=== PATIENT | female | born 1990 | race Caucasian/White ===

== ENCOUNTER 2020-07-21 14:18 | Emergency (ER) | payer MEDICAID ==
[~2020-07-21] VITALS: Ht 167.6 cm; Wt 83.8 kg
[2020-07-21 15:01] VITALS: BP 135/76
--- NOTE | 2020-07-21 15:23 | NUR ---
[employer] HEL[employer]: CALLED TO ROOM PT FROM LOBBY, NOT IN LOBBY, ORDERS REVIEWED AND RADIOLOGY CALLED. PT IN RAD AT THIS TIME. TO GO TO ROOM 10 AFTER IMAGING COMPLETE.
--- NOTE | 2020-07-21 15:46 | NUR ---
ICE PROVIDED. ALL RESULTS ARE BACK AT THIS TIME. CHART UP FOR RECHECK.
--- NOTE | 2020-07-21 16:30 | NUR ---
INGRID MEDINA ACE WRAPPED LEFT KNEE AND PROVIDED CRUTCHES, PER ERNP INSTRUCTIONS
== END 2020-07-21 16:32 | disposition home or self-care (01) ==
LOC: ED 16:00
DX: S83.92XA Sprain of unspecified site of left knee, initial encounter (principal); S80.02XA Contusion of left knee, initial encounter; S90.512A Abrasion, left ankle, initial encounter; W18.30XA Fall on same level, unspecified, initial encounter; Y93.89 Activity, other specified; Y92.009 Unspecified place in unspecified non-institutional (private) residence as the place of occurrence of the external cause; Y99.8 Other external cause status
CPT/HCPCS: 99284